=== PATIENT | female | born 1935 | race Caucasian/White ===

== ENCOUNTER 2022-11-19 17:05 | Emergency (ER) | payer MEDICARE, OTHER ==
[~2022-11-19] VITALS: Ht 157.5 cm; Wt 50.9 kg
[2022-11-19 17:27] VITALS: BP 149/90
[2022-11-19] MEDS ORDERED: HYDR-3965 PO (18:59)
== END 2022-11-19 19:14 | disposition home or self-care (01) ==
LOC: ER 17:06
DX: K62.3 Rectal prolapse (principal); Z88.5 Allergy status to narcotic agent; Z79.899 Other long term (current) drug therapy
CPT/HCPCS: 99284

== ENCOUNTER 2022-11-22 19:33 | Emergency (ER) | payer MEDICARE, OTHER ==
[~2022-11-22] VITALS: Ht 157.5 cm; Wt 49.0 kg
[~2022-11-22 19:33] MED LIST: HYDR-3965 PO
[2022-11-22 19:57] VITALS: BP 140/54
[2022-11-22 20:22] LABS: BASOPHILS # (AUTO) 0.1 X10'3 (0-0.2); BASOPHILS % (AUTO) 0.8 % (0-1); EOSINOPHILS # (AUTO) 0.1 X10'3 (0-0.9); EOSINOPHILS % (AUTO) 1.7 % (0-6); HEMATOCRIT 38.2 % (35.0-45.0); HEMOGLOBIN 12.9 g/dl (12.0-16.0); LYMPHOCYTES # (AUTO) 1.2 X10'3 (1.1-4.8); LYMPHOCYTES % (AUTO) 17.1 % (21-51); MEAN CORPUSCULAR HEMOGLOBIN 32.2 PG (27.0-31.0); MEAN CORPUSCULAR HGB CONC 33.7 g/dL (33.0-36.5); MEAN CORPUSCULAR VOLUME 95.3 FL (78-98); MEAN PLATELET VOLUME 7.8 FL (7.4-10.4); MONOCYTES # (AUTO) 0.7 X10'3 (0-0.9); NEUTROPHILS # (AUTO) 4.9 X10'3 (1.8-7.7); NEUTROPHILS % (AUTO) 70.4 % (42-75); PLATELET COUNT 269 X10'3 (140-440); RED BLOOD COUNT 4.01 X10'6 (4.20-5.60); RED CELL DISTRIBUTION WIDTH 13.5 % (11.5-14.5)
[2022-11-22 20:35] LABS: ALANINE AMINOTRANSFERASE 30 U/L (12-78); ALBUMIN 3.4 G/DL (3.4-5.0); ALBUMIN/GLOBULIN RATIO 0.8 (1.1-1.5); ALKALINE PHOSPHATASE 158 IU/L (46-116); ANION GAP 6 (8-16); ASPARTATE AMINO TRANSFERASE 41 U/L (10-37); BILIRUBIN,TOTAL 0.5 MG/DL (0.1-1.0); BLOOD UREA NITROGEN 20 MG/DL (7-18); BUN/CREATININE RATIO 22.5 (10.0-20.0); CALCIUM 8.6 MG/DL (8.5-10.1); CHLORIDE 98 MMOL/L (99-107); CREATININE 0.89 MG/DL (0.40-0.90); GLUCOSE 115 MG/DL (70-104); LIPASE 167 U/L (73-393); POTASSIUM 3.1 MMOL/L (3.5-5.1); SODIUM 137 MMOL/L (135-145); TOTAL CARBON DIOXIDE 33.2 MMOL/L (24-32); TOTAL PROTEIN 7.5 G/DL (6.4-8.2); eGFR 60 ML/MIN
== END 2022-11-23 00:29 | disposition home or self-care (01) ==
LOC: ER 19:33
DX: K62.5 Hemorrhage of anus and rectum (principal); K62.3 Rectal prolapse; Z53.21 Procedure and treatment not carried out due to patient leaving prior to being seen by health care provider
CPT/HCPCS: 36415; 80053; 83690; 85025; 99281; 99283